=== PATIENT | male | born 1935 | race Caucasian/White ===

== ENCOUNTER 2017-12-12 02:21 | Inpatient (IN) | payer MEDICARE, OTHER ==
[2017-12-12 03:06] LABS: ADD MAN DIFF? NO
[2017-12-12 03:09] LABS: BASOPHILS % 0.2 % (0.0-2.0); EOSINOPHILS # 0.2 10^3/ul (0.0-0.5); EOSINOPHILS % 1.2 % (0.0-7.0); HEMOGLOBIN 13.3 g/dl (14.0-18.0); LYMPHOCYTES # 2.9 10^3/ul (0.8-2.9); LYMPHOCYTES % 16.2 % (15.0-51.0); MEAN CORPUSCULAR HEMOGLOBIN 29.9 pg (29.0-33.0); MEAN CORPUSCULAR HGB CONC 33.3 g/dl (32.0-37.0); MEAN CORPUSCULAR VOLUME 89.9 fl (82.0-101.0); MEAN PLATELET VOLUME 10.7 fl (7.4-10.4); MONOCYTE # 0.9 10^3/ul (0.3-0.9); MONOCYTES % 4.8 % (0.0-11.0); NEUTROPHIL # 13.6 10^3/ul (1.6-7.5); NEUTROPHILS % 75.4 % (39.0-77.0); PLATELET COUNT 366 10^3/UL (140-415); RED BLOOD COUNT 4.45 10^6/ul (4.70-6.10); RED CELL DISTRIBUTION WIDTH 15.4 % (11.5-14.5)
[2017-12-12 03:09] LABS: WHITE BLOOD COUNT 18.1 10^3/ul (4.8-10.8)
[2017-12-12 03:27] LABS: ALANINE AMINOTRANSFERASE 51 IU/L (13-69); ALBUMIN 3.7 g/dl (3.3-4.9); ALBUMIN/GLOBULIN RATIO 1.12; ALKALINE PHOSPHATASE 111 IU/L (42-121); ANION GAP 14 (8-16); ASPARTATE AMINO TRANSFERASE 42 IU/L (15-46); BILIRUBIN,INDIRECT 0.5 mg/dl (0-1.1); BILIRUBIN,TOTAL 0.5 mg/dl (0.2-1.3); BLOOD UREA NITROGEN 39 mg/dl (7-20); CALCIUM 9.3 mg/dl (8.4-10.2); CARBON DIOXIDE 27 mmol/L (21-31); CHLORIDE 108 mmol/L (97-110); CREATININE 1.61 mg/dl (0.61-1.24); GLUCOSE 146 mg/dl (70-220); POTASSIUM 4.2 mmol/L (3.5-5.1); SODIUM 145 mmol/L (135-144)
[2017-12-12 03:39] LABS: B-TYPE NATRIURETIC PEPTIDE 244 PG/ML (0-450)
[2017-12-12 03:41] LABS: TROPONIN-I < 0.012 ng/ml (0.00-0.12)
[2017-12-12 04:02] LABS: ADD UMIC YES; UR ASCORBIC ACID NEGATIVE (NEGATIVE); UR BACTERIA FEW /HPF (NONE SEEN); UR BILIRUBIN (Dip) NEGATIVE (NEGATIVE); UR BLOOD (Dip) 3+ mg/dL (NEGATIVE); UR CLARITY CLOUDY (CLEAR); UR COLOR YELLOW (YELLOW); UR GLUCOSE (Dip) NEGATIVE (NEGATIVE); UR KETONES (Dip) NEGATIVE (NEGATIVE); UR LEUKOCYTE ESTERASE (Dip) 3+ Leu/ul (NEGATIVE); UR NITRITE (Dip) POSITIVE (NEGATIVE); UR RBC 150 /HPF (0-5); UR SPECIFIC GRAVITY (Dip) 1.017 (1.003-1.030); UR TOTAL PROTEIN (Dip) NEGATIVE (NEGATIVE); UR UROBILINOGEN (Dip) NEGATIVE (NEGATIVE); UR WBC 96 /HPF (0-5)
[2017-12-12] MEDS: CEFTRIAXONE 1 GM/50 ML (PMX) 50 ML IVPB ×2 (06:14→18:43)
[2017-12-12] MEDS ORDERED: ACETAMINOPHEN 325 MG TAB PO (06:30)
[2017-12-12] MEDS ORDERED: ONDANSETRON 4 MG INJ IV (06:30)
[2017-12-12] MEDS ORDERED: morphine 2 MG INJ IV (06:30)
[2017-12-12] MEDS ORDERED: NACL 0.9% 3 ML SYG IV (06:30)
[2017-12-12] MEDS: IOHEXOL 300MG/ML 150 ML BTL (07:11)
[2017-12-12] MEDS: SOD CHLORIDE 0.9% 100 ML (07:11)
[2017-12-12] MEDS: ALBUTEROL/IPRATROPIUM (NEB) 3 ML AMP HHN (22:25)
[2017-12-13] MEDS: METHYLPREDNISOLONE 125 MG INJ IV (06:08)
[2017-12-13] MEDS: hydrALAzine 20 MG INJ IV (06:10)
[2017-12-13] MEDS: CEFTRIAXONE 1 GM/50 ML (PMX) 50 ML IVPB (06:54)
[2017-12-13 08:19] LABS: ADD MAN DIFF? NO
[2017-12-13 08:24] LABS: BASOPHILS % 0.2 % (0.0-2.0); EOSINOPHILS # 0.2 10^3/ul (0.0-0.5); EOSINOPHILS % 1.1 % (0.0-7.0); HEMATOCRIT 39.1 % (42.0-52.0); LYMPHOCYTES # 2.2 10^3/ul (0.8-2.9); LYMPHOCYTES % 12.9 % (15.0-51.0); MEAN CORPUSCULAR HEMOGLOBIN 29.8 pg (29.0-33.0); MEAN CORPUSCULAR HGB CONC 33.2 g/dl (32.0-37.0); MEAN CORPUSCULAR VOLUME 89.7 fl (82.0-101.0); MEAN PLATELET VOLUME 10.5 fl (7.4-10.4); MONOCYTE # 0.7 10^3/ul (0.3-0.9); MONOCYTES % 4.3 % (0.0-11.0); NEUTROPHIL # 13.4 10^3/ul (1.6-7.5); NEUTROPHILS % 79.2 % (39.0-77.0); PLATELET COUNT 378 10^3/UL (140-415); RED BLOOD COUNT 4.36 10^6/ul (4.70-6.10); RED CELL DISTRIBUTION WIDTH 15.3 % (11.5-14.5)
[2017-12-13 08:24] LABS: WHITE BLOOD COUNT 16.9 10^3/ul (4.8-10.8)
[2017-12-13 08:44] LABS: ALANINE AMINOTRANSFERASE 49 IU/L (13-69); ALBUMIN 3.2 g/dl (3.3-4.9); ALBUMIN/GLOBULIN RATIO 0.94; ALKALINE PHOSPHATASE 104 IU/L (42-121); ANION GAP 13 (8-16); ASPARTATE AMINO TRANSFERASE 35 IU/L (15-46); BILIRUBIN,INDIRECT 0.3 mg/dl (0-1.1); BILIRUBIN,TOTAL 0.3 mg/dl (0.2-1.3); BLOOD UREA NITROGEN 27 mg/dl (7-20); CALCIUM 9.2 mg/dl (8.4-10.2); CARBON DIOXIDE 28 mmol/L (21-31); CHLORIDE 106 mmol/L (97-110); CREATININE 1.17 mg/dl (0.61-1.24); GLUCOSE 138 mg/dl (70-220); MAGNESIUM 2.3 mg/dl (1.7-2.5); PHOSPHORUS 3.8 mg/dl (2.5-4.9); POTASSIUM 3.9 mmol/L (3.5-5.1); SODIUM 143 mmol/L (135-144); TOTAL PROTEIN 6.6 g/dl (6.1-8.1)
[2017-12-13 09:13] LABS: PROSTATE SPECIFIC ANTIGEN 18.3 ng/ml (0.0-4.0)
[2017-12-13] MEDS: GABAPENTIN 100 MG CAP PO (12:31)
[2017-12-13] MEDS ORDERED: OLOPATADINE 0.1% 5 ML OPH LEFT EYE (21:00)
[2017-12-13] MEDS ORDERED: NEBIVOLOL 5 MG TAB PO (21:00)
[2017-12-13] MEDS ORDERED: CIPROFLOXACIN 500 MG TAB PO (21:00)
[2017-12-13] MEDS ORDERED: BIMATOPROST 0.01% 2.5 ML BTL LEFT EYE (21:00)
[2017-12-13] MEDS ORDERED: SALMETEROL/FLUTICASONE 250/50 INHA INH (21:00)
[2017-12-13] MEDS ORDERED: ATORVASTATIN 40 MG TAB PO (21:00)
[2017-12-14] MEDS ORDERED: PANTOPRAZOLE (EC) 40 MG TAB PO (09:00)
[2017-12-14] MEDS ORDERED: CHOLECALCIFEROL 2,000 UNIT CAP PO (09:00)
[2017-12-14] MEDS ORDERED: TAMSULOSIN (SR) 0.4 MG CAP PO (09:00)
[2017-12-14] MEDS ORDERED: ALLOPURINOL 100 MG TAB PO (09:00)
== END 2017-12-13 14:02 | disposition short-term general hospital (02) | DRG 871 ==
LOC: E/R 02:21 → MS4 06:08
DX: A41.9 Sepsis, unspecified organism (principal); J18.9 Pneumonia, unspecified organism; J90 Pleural effusion, not elsewhere classified; J95.811 Postprocedural pneumothorax; C34.90 Malignant neoplasm of unspecified part of unspecified bronchus or lung; N39.0 Urinary tract infection, site not specified; T81.82XA Emphysema (subcutaneous) resulting from a procedure, initial encounter; N40.1 Benign prostatic hyperplasia with lower urinary tract symptoms; R33.8 Other retention of urine
CPT/HCPCS: 36415; 71045; 71250; 71275; 80053; 81001; 83735; 83880; 84100; 84153; 84154; 84484; 85025; 87040; 87086; 93005; 94664; 96374; 96375; 99285-25